=== PATIENT | male | born 1950 | race Two or more races ===

== ENCOUNTER 2020-03-26 15:51 | Inpatient (IN) | payer OTHER ==
[~2020-03-26] VITALS: Ht 167.6 cm; Wt 136.0 kg
[2020-03-26] MEDS ORDERED: SODIUM CHLORIDE 0.9% 1,000 ML IV ONE (17:00)
[2020-03-26] MEDS ORDERED: ONDANSETRON HCL 4 MG/2 ML VIAL IV ONE (17:00)
[2020-03-26] MEDS ORDERED: KETOROLAC TROMETH 30 MG/ML 1ML VIAL IV ONE (18:15)
[2020-03-26] MEDS ORDERED: KETOROLAC TROMETH 30 MG/ML 1ML VIAL ONE (18:18)
[2020-03-26 18:32] LABS: Basophils # (auto) 0 10 ^3/uL (0-0.2); Basophils % (auto) 0.3 % (0.0-2.0); Eosinophils # (auto) 0 10 ^3/uL (0-0.8); Hematocrit 43.4 % (41.0-53.0); Hemoglobin 14.6 g/dL (13.5-17.5); Lymphocytes # (auto) 0.5 10 ^3/uL (0.4-5.4); Lymphocytes % (auto) 5.2 % (10.0-50.0); Mean Corpuscular Hemoglobin 29.6 pg (28.0-32.0); Mean Corpuscular Hgb Conc. 33.6 g/dL (32.0-36.0); Mean Corpuscular Volume 88.1 fL (80.0-100.0); Monocytes # (auto) 0.9 10 ^3/uL (0-1.3); Monocytes % (auto) 9.3 % (0.0-12.0); Neutrophils # (auto) 8.2 10 ^3/uL (1.6-8.6); Neutrophils % (auto) 85.2 % (37.0-80.0); Nucleated Red Blood Cells % 0.1 %; Platelet Count (auto) 207 10^3/uL (140-450); Red Blood Cells 4.93 10^6/uL (4.5-5.90); Red Cell Distribution Width 14.2 % (11.8-14.3); White Blood Cell 9.6 10^3/uL (4.4-10.8)
[2020-03-26 18:48] LABS: Albumin 3.1 g/dL (3.4-5.0); Anion Gap 6 (5-15); Blood Urea Nitrogen 13 mg/dL (7-18); Calcium 8.5 mg/dL (8.5-10.1); Carbon Dioxide 22 mmol/L (21-32); Chloride 112 mmol/L (98-107); Glucose 116 mg/dL (74-106); Magnesium 2.4 mg/dL (1.6-2.6); Potassium 3.5 mmol/L (3.5-5.1); Sodium 140 mmol/L (136-145)
[2020-03-26 18:54] LABS: Alanine Aminotransferase 17 U/L (16-61); Alkaline Phosphatase 122 U/L (45-117); Aspartate Aminotransferase 12 U/L (15-37); BUN/Creatinine Ratio 14.9; Bilirubin, Total 1.9 mg/dL (0.2-1.0); GFR African American 112 mL/min; GFR Non-African American 92 mL/min; Total Protein 7.1 g/dL (6.4-8.2)
[2020-03-26] MEDS ORDERED: NITROGLYCERIN 0.4 MG SL TAB SL PRN ×2 (20:45)
[2020-03-26] MEDS ORDERED: MORPHINE SULF INJ 2 MG/ML SYRINGE 1ML IV PRN (20:45)
--- NOTE | 2020-03-26 21:20 | NUR ---
[facility] admit from [facility] admitted to [facility] . Patient oriented to unit, room, bed . Patient weighed by bed scale and encouraged to call if they need something. All questions and concerns addressed, patient verbalized understanding.
[2020-03-26 22:00] VITALS: BP 135/84
[2020-03-26] MEDS ORDERED: LISINOPRIL 20 MG TAB PO SCH (22:00)
[2020-03-26] MEDS: METOPROLOL TARTRATE 25 MG TAB PO SCH (23:17)
[2020-03-26] MEDS: HYDROcodone-ACET 10/325MG TAB PO PRN (23:17)
[2020-03-26] MEDS: SOD CHL 0.45% 1,000 ML IV SCH (23:43)
[2020-03-27 05:00] VITALS: BP 101/59
[2020-03-27] MEDS: HYDROcodone-ACET 10/325MG TAB PO PRN ×2 (06:59→13:16)
[2020-03-27] MEDS: SOD CHL 0.45% 1,000 ML IV SCH ×3 (07:00→18:28)
[2020-03-27 08:00] VITALS: BP 93/55
[2020-03-27 08:48] VITALS: BP 93/55
[2020-03-27] MEDS: METOPROLOL TARTRATE 25 MG TAB PO SCH (09:34)
[2020-03-27] MEDS ORDERED: metFORMIN HYDROCHLORIDE 500 MG TAB PO SCH (10:00)
[2020-03-27] MEDS ORDERED: amLODIPine BESYLATE 5 MG TAB PO SCH (10:00)
[2020-03-27] MEDS ORDERED: PANTOPRAZOLE 40 MG TAB PO SCH (10:00)
[2020-03-27] MEDS ORDERED: ENOXAPARIN SOD 100 MG/1 ML SYRINGE SC SCH (10:00)
[2020-03-27 10:56] LABS: Hematocrit 42.2 % (41.0-53.0); Hemoglobin 14.1 g/dL (13.5-17.5); Mean Corpuscular Hgb Conc. 33.5 g/dL (32.0-36.0); Mean Corpuscular Volume 89.7 fL (80.0-100.0); Platelet Count (auto) 277 10^3/uL (140-450); Red Cell Distribution Width 14.7 % (11.8-14.3); White Blood Cell 13.8 10^3/uL (4.4-10.8)
[2020-03-27 11:02] LABS: Band Neutrophils % (manual) 0; Basophils % (manual) 0 (0.0-2.0); Blast Cells 0; Eosinophils % (manual) 0 (0-7); Metamyelocytes % 0; Myelocytes % 0; Promyelocytes % 0; Reactive Lymphocytes 0
[2020-03-27 11:15] LABS: Albumin 2.8 g/dL (3.4-5.0); Calcium 8.7 mg/dL (8.5-10.1); Potassium 4.2 mmol/L (3.5-5.1)
[2020-03-27 11:19] LABS: BUN/Creatinine Ratio 14.5; Bilirubin, Total 2.7 mg/dL (0.2-1.0); Total Protein 7.1 g/dL (6.4-8.2)
[2020-03-27 11:22] LABS: Lymphocytes % (manual) 15 (10.0-50.0); Monocytes % (manual) 9 (0-12)
[2020-03-27 12:38] VITALS: BP 101/59
[2020-03-27 13:32] VITALS: BP 101/56
--- NOTE | 2020-03-27 15:06 | NUR ---
PT REPORTED HAS NOT BEEN ABLE TO URINATE, BLADDER SCAN WAS DONE SHOWED 740ML. DR. RODRIGUEZ NOTIFIED. ORDERS STRAIGHT CATH AND DISCHARGE PT. ORDER READ BACK AND VERIFIED, WILL CARRY OUT ORDERS.
--- NOTE | 2020-03-27 15:30 | NUR ---
STRAIGHT CATH WAS DONE, 820ML DARK JOLIE URINE, PT TOLERATING WELL. WILL PROCEED WITH THE DISCHARGE.
[2020-03-27 17:07] VITALS: BP 94/58
--- NOTE | 2020-03-27 17:25 | NUR ---
Discharge instructions given to pt and guards as ordered. All questions and concerns addressed. Patient verbalized understanding. Medication reconciliation form completed and copy given to guards at bedside. IV removed with catheter intact, pressure dressing applied. Vs: Wnl. Guard at bedside calling for transportation.
== END 2020-03-27 16:45 | DRG 605 ==
LOC: EDBD 15:51 → EEVIPCON 15:51 → ER 15:51 → WEST WING 15:52
PROVIDERS: ADMIT Internal Medicine; ATTEND Internal Medicine
DX: S70.02XA Contusion of left hip, initial encounter (principal); S40.012A Contusion of left shoulder, initial encounter; I10 Essential (primary) hypertension; E86.0 Dehydration; E11.65 Type 2 diabetes mellitus with hyperglycemia; F31.9 Bipolar disorder, unspecified; N40.0 Benign prostatic hyperplasia without lower urinary tract symptoms; Z81.8 Family history of other mental and behavioral disorders; Z95.5 Presence of coronary angioplasty implant and graft; I25.10 Atherosclerotic heart disease of native coronary artery without angina pectoris; Z11.59 Encounter for screening for other viral diseases
CPT/HCPCS: 36415; 70450; 71045; 73030; 73130; 73502; 73560; 80053; 82550; 83735; 83880; 84443; 84484; 85007; 85025; 85027; 93005; G0378; J1885; J2405